=== PATIENT | female | born 1980 | race Caucasian/White ===

== ENCOUNTER 2017-07-19 23:13 | Observation (INO) | payer BC, OTHER ==
[2017-07-19] MEDS ORDERED: METOCLOPRAMIDE HCL ORAL SOLN 10 MG/10 ML UDCUP PO ONE (23:32)
[2017-07-19] MEDS ORDERED: MAG HYDROX/AL HYDROX/SIMETH SUSP 30 ML UDCUP PO ONE (23:32)
[2017-07-19] MEDS ORDERED: LIDOCAINE 2% VISCOUS SOLN 20 ML UDCUP PO ONE (23:32)
--- NOTE | 2017-07-19 23:34 | ER Document Report ---
ED Medical Screen (RME) - General Chief Complaint: Abdominal Pain Stated Complaint: ABDOMINAL PAIN Notes: Patient is a 36-year-old female presents emergency department complaining of epigastric pain radiating down into her lower belly midline that started earlier this afternoon he got worse around 5:00. She admits to episodes of emesis without any bright red blood, coffee-ground emesis. She denies any sharp pain radiating into her back up in her chest or in her right upper quadrant. Previous cholecystectomy and hysterectomy. Still has her appendix. Denies any fevers. States her last bowel movement was earlier this morning. Denies any other previous GI history. I have greeted and performed a rapid initial assessment of this patient. A comprehensive ED assessment and evaluation of the patient, analysis of test results and completion of the medical decision making process will be conducted by additional ED providers. TRAVEL OUTSIDE OF THE [place] IN LAST 30 DAYS: No - Related Data Allergies/Adverse Reactions: No Known Allergies Allergy (Unverified 01/31/15 11:53) Past Medical History - Past Medical History Cardiac Medical History: Reports: Hx Hypertension - gestational Denies: Hx Coronary Artery Disease, Hx Heart Attack Pulmonary Medical History: Denies: Hx Asthma, Hx Bronchitis, Hx COPD, Hx Pneumonia Neurological Medical History: Denies: Hx Cerebrovascular Accident, Hx Seizures Renal/ Medical History: Denies: Hx Peritoneal Dialysis GI Medical History: Denies: Hx Hepatitis, Hx Hiatal Hernia, Hx Ulcer Musculoskeltal Medical History: Denies Hx Arthritis Infectious Medical History: Denies: Hx Hepatitis Past Surgical History: Reports: Hx Section - x1, Hx Hysterectomy - , Hx Oral Surgery - wisdom teeth. Denies: Hx Mastectomy, Hx Open Heart Surgery, Hx Pacemaker - Immunizations Hx Diphtheria, Pertussis, Tetanus Vaccination: Yes Physical Exam - Vital signs Vitals: Temp Pulse Resp BP Pulse Ox 98.1 F 102 H 20 131/82 H 98 07/19/17 23:22 07/19/17 23:22 07/19/17 23:22 07/19/17 23:22 07/19/17 23:22 - Notes Notes: PHYSICAL EXAM GENERAL: Alert, interacts well. LUNGS: Clear to auscultation bilaterally, no wheezes, rales, or rhonchi. No respiratory distress. HEART: Regular rate and rhythm. No murmurs, gallops, or rubs. ABDOMEN: Soft, mildly distended, nontender. No guarding, rebound, or rigidity. NEUROLOGICAL: Alert and oriented x4. Normal speech. PSYCH: Normal affect, normal mood. Course - Vital Signs Vital signs: Temp Pulse Resp BP Pulse Ox 98.1 F 102 H 20 131/82 H 98 07/19/17 23:22 07/19/17 23:22 07/19/17 23:22 07/19/17 23:22 07/19/17 23:22
[2017-07-20 00:31] LABS: HEMATOCRIT 39.4 % (36.0-47.0); MEAN CORPUSCULAR HEMOGLOBIN 28.2 pg (27.0-33.4); MEAN CORPUSCULAR VOLUME 86 fl (80-97); PLATELET COUNT 326 10^3/uL (150-450); RED CELL DISTRIBUTION WIDTH 13.2 % (11.5-14.0); WHITE BLOOD COUNT 18.7 10^3/uL (4.0-10.5)
--- NOTE | 2017-07-20 00:36 | RADIOLOGY REPORT (SQ) ---
EXAM DESCRIPTION: ACUTE ABDOMEN SERIES CLINICAL HISTORY: 36 years, Female, epigastric pain COMPARISON: None. TECHNIQUE: Three images. LIMITATIONS: None. FINDINGS: No acute cardiopulmonary findings. Paucity of bowel gas without obstruction. Right upper abdominal clips. Intact bony structures. IMPRESSION: No acute findings.
[2017-07-20 00:53] LABS: ALANINE AMINOTRANSFERASE 26 U/L (9-52); ALBUMIN 5.4 g/dL (3.5-5.0); ALKALINE PHOSPHATASE 86 U/L (38-126); ANION GAP 15 (5-19); ASPARTATE AMINO TRANSFERASE 23 U/L (14-36); BILIRUBIN,DIRECT 0.1 mg/dL (0.0-0.4); BILIRUBIN,TOTAL 0.3 mg/dL (0.2-1.3); BLOOD UREA NITROGEN 11 mg/dL (7-20); CALCIUM 10.7 mg/dL (8.4-10.2); CARBON DIOXIDE 23 mmol/L (22-30); CHLORIDE 102 mmol/L (98-107); GLUCOSE 117 mg/dL (75-110); LIPASE 92.1 U/L (23-300); POTASSIUM 4.2 mmol/L (3.6-5.0); SODIUM 140.1 mmol/L (137-145); TOTAL PROTEIN 7.8 g/dL (6.3-8.2)
[2017-07-20] MEDS ORDERED: HYDROMORPHONE HCL INJ/PF 2 MG/ML AMPULE IV ONE ×2 (02:15→05:24)
[2017-07-20] MEDS ORDERED: ONDANSETRON HCL INJ/PF 4 MG/2 ML SDV IV ONE ×2 (02:15→04:29)
--- NOTE | 2017-07-20 02:56 | ER Document Report ---
ED General - General Chief Complaint: Abdominal Pain Stated Complaint: ABDOMINAL PAIN Time Seen by Provider: 07/20/17 00:24 Notes: Patient is a pleasant 36-year-old female presents with complaint of abdominal pain starting at 5 PM. She is also had some nausea and vomiting. No diarrhea. No fevers. She says she has never had pain like this before. She has previous history of cholecystectomy and hysterectomy. Pain initially was more upper abdomen but now is more periumbilical. No pain in the back. No dysuria. No abnormal vaginal discharge or bleeding. TRAVEL OUTSIDE OF THE [place] IN LAST 30 DAYS: No - Related Data Allergies/Adverse Reactions: No Known Allergies Allergy (Unverified 01/31/15 11:53) Past Medical History - Social History Smoking Status: Never Smoker Frequency of alcohol use: None Drug Abuse: None Family History: Reviewed & Not Pertinent Patient has suicidal ideation: No Patient has homicidal ideation: No - Past Medical History Cardiac Medical History: Reports: Hx Hypertension - gestational Denies: Hx Coronary Artery Disease, Hx Heart Attack Pulmonary Medical History: Denies: Hx Asthma, Hx Bronchitis, Hx COPD, Hx Pneumonia Neurological Medical History: Denies: Hx Cerebrovascular Accident, Hx Seizures Renal/ Medical History: Denies: Hx Peritoneal Dialysis GI Medical History: Denies: Hx Hepatitis, Hx Hiatal Hernia, Hx Ulcer Musculoskeltal Medical History: Denies Hx Arthritis Infectious Medical History: Denies: Hx Hepatitis Past Surgical History: Reports: Hx Section - x1, Hx Cholecystectomy, Hx Hysterectomy - 01/23/2015, Hx Oral Surgery - wisdom teeth, Hx Tonsillectomy. Denies: Hx Mastectomy, Hx Open Heart Surgery, Hx Pacemaker - Immunizations Hx Diphtheria, Pertussis, Tetanus Vaccination: Yes Review of Systems - Review of Systems Notes: My Normal Review Basic REVIEW OF SYSTEMS: CONSTITUTIONAL : Denies fever, chills, or sweats. Denies recent illness. EENT: Denies eye, ear, throat, or mouth pain or symptoms. Denies nasal or sinus congestion. CARDIOVASCULAR: Denies chest pain. RESPIRATORY: Denies cough, cold, or chest congestion. Denies shortness of breath, difficulty breathing, or wheezing. GASTROINTESTINAL: Pain in the periumbilical region of the abdomen. Vomiting. No diarrhea. GENITOURINARY: Denies difficulty urinating, painful urination, burning, frequency, or blood in urine. FEMALE GENITOURINARY: Denies vaginal bleeding, abnormal or irregular periods. LMP: MUSCULOSKELETAL: Denies neck or back pain or joint pain or swelling. SKIN: Denies rash or skin lesions. NEUROLOGICAL: Denies altered mental status or loss of consciousness. Denies headache. Denies weakness or paralysis or loss of use of either side. Denies problems with gait or speech. Denies sensory or motor loss. ALL OTHER SYSTEMS REVIEWED AND NEGATIVE. Physical Exam - Vital signs Vitals: Temp Pulse Resp BP Pulse Ox 98.1 F 102 H 20 131/82 H 98 07/19/17 23:22 07/19/17 23:22 07/19/17 23:22 07/19/17 23:22 07/19/17 23:22 - Notes Notes: General Appearance: Well nourished, alert, cooperative, no acute distress, moderate obvious discomfort. Vitals: reviewed, See vital signs table. Head: no swelling or tenderness to the head Eyes: PERRL, EOMI, Conjuctiva clear Mouth: No decreasd moisture Lungs: No wheezing, No rales, No rhonci, No accessory muscle use, good air exchange bilaterally. Heart: Normal rate, Regular rythm, No murmur, no rub Abdomen: Normal BS, soft, No rigidity, mild to moderate periumbilical abdominal tenderness palpation, No guarding, no rebound, no abdominal masses, Extremities: strength 5/5 in all extremities, good pulses in all extremities, no swelling or tenderness in the extremities, no edema. Skin: warm, dry, appropriate color, no rash Neuro: speech clear, oriented x 3, normal affect, responds appropriately to questions. Course - Re-evaluation Re-evalutation: 07/20/17 04:47 On reevaluation the patient's pain continues to be well-controlled. She is not asking for any further pain medicine. She continues to only have pain in the suprapubic region. No pain over right lower quadrant. CT scan does show appendicitis. I have ordered Zosyn. She is n.p.o. I have ordered maintenance IV fluids. I will contact the general surgeon to talk to them about admitting and definitive treatment for the patient's appendicitis. 07/20/17 05:30 I did speak with Dr. Morales who has now come down to see the patient. He is evaluating patient for definitive treatment of her appendicitis. Patient did start having little more pain and therefore I have just ordered repeat dosage of pain medicine. Dictation of this chart was performed using voice recognition software; therefore, there may be some unintended grammatical errors. 07/20/17 05:30 - Vital Signs Vital signs: Temp Pulse Resp BP Pulse Ox 98.8 F 56 L 16 129/77 H 97 07/20/17 23:21 07/20/17 23:21 07/20/17 23:21 07/20/17 23:21 07/20/17 23:21 - Laboratory Result Diagrams: 07/20/17 00:08 07/20/17 00:08 Laboratory results interpreted by me: 07/20/17 07/20/17 00:08 00:08 WBC 18.7 H Glucose 117 H Calcium 10.7 H Albumin 5.4 H Discharge - Discharge Clinical Impression: Appendicitis Qualifiers: Appendicitis type: acute appendicitis Acute appendicitis type: with localized peritonitis Qualified Code(s): K35.3 - Acute appendicitis with localized peritonitis Condition: Stable Disposition: ADMITTED INPATIENT Admitting Provider: Surgicalist Unit Admitted: Surgical Floor
[2017-07-20 03:55] LABS: APPEARANCE,URINE SLIGHTLY-CLOUDY; BILIRUBIN,URINE NEGATIVE (NEGATIVE); COLOR,URINE YELLOW; GLUCOSE, URINE NEGATIVE (NEGATIVE); KETONES,URINE NEGATIVE (NEGATIVE); LEUKOCYTE ESTERASE,URINE NEGATIVE (NEGATIVE); NITRITE,URINE NEGATIVE (NEGATIVE); PROTEIN,URINE NEGATIVE (NEGATIVE); URINE SPECIFIC GRAVITY 1.019; UROBILINOGEN,URINE NEGATIVE mg/dL (<2.0)
--- NOTE | 2017-07-20 04:44 | RADIOLOGY REPORT (SQ) ---
EXAM DESCRIPTION: CT ABD/PELVIS WITH IV ORAL CLINICAL HISTORY: 36 years Female, abdominal pain, leukocytosis COMPARISON: Ultrasound, same day. TECHNIQUE: 100 mL Isovue-370 IV and oral contrast. Coronal and sagittal reformat. This exam was performed according to our departmental dose-optimization program, which includes automated exposure control, adjustment of the mA and/or kV according to patient size and/or use of iterative reconstruction technique. FINDINGS: 1.0 cm diameter inflamed, nonopacified appendix with 0.4 cm mural thickness and mild fat inflammation surrounding the appendiceal tip consistent with acute appendicitis. No free fluid. Cholecystectomy clips. Surgically absent uterus. Inferior thorax, liver, pancreas, spleen, adrenals, renal system, pelvic organs, lymphatics, vasculature, and musculoskeleton appear otherwise unremarkable. IMPRESSION: Acute appendicitis. Critical results reporting: The results of the examination have been personally discussed with the referring health care provider, SUSAN COOL, immediately following interpretation of the examination on 07/20/2017 3:40 AM BRICK EXTRUDER OPERATOR.
[2017-07-20] MEDS ORDERED: NORMAL SALINE 1000 ML 1,000 ML IV ONE ×2 (04:45→06:04)
[2017-07-20] MEDS ORDERED: PIPERACILLIN/TAZOBACTAM 3.375 GM VIAL IV ONE (04:45)
[2017-07-20] MEDS ORDERED: ONDANSETRON HCL INJ/PF 4 MG/2 ML SDV IV PRN (05:54)
--- NOTE | 2017-07-20 05:54 | PDOC H&P ---
History of Present Illness Admission Date/PCP: 07/20/16 Patient complains of: Abdominal pain x 24 hrs History of Present Illness: ALEM SANCHEZ is a 36 year old female, healthy with a 24 hrs hx of abdominal pain; A CT scan A/P has been done and is positive for acute, nonperforated appendicitis. Past Medical History Cardiac Medical History: Reports: Hypertension - gestational Denies: Coronary Artery Disease, Myocardial Infarction Pulmonary Medical History: Denies: Asthma, Bronchitis, Chronic Obstructive Pulmonary Disease (COPD), Pneumonia Neurological Medical History: Denies: Seizures Neurological History Note: migraine GI Medical History: Denies: Hepatitis, Hiatal Hernia Musculoskeltal Medical History: Denies: Arthritis Hematology: Denies: Anemia, Sickle Cell Disease Past Surgical History Past Surgical History: Reports: Section - x1, Cholecystectomy, Hysterectomy - 01/23/2015, Tonsillectomy Denies: Amputation, Mastectomy, Pacemaker Social History Smoking Status: Never Smoker Family History Family History: Reviewed & Not Pertinent Parental Family History Reviewed: Yes Children Family History Reviewed: Yes Sibling(s) Family History Reviewed.: Yes Medication/Allergy Home Medications: Cyclobenzaprine HCl [Flexeril 10 mg Tablet] 10 mg PO Q8HP PRN 01/16/15 Docusate Sodium [Colace 100 mg Capsule] 100 mg PO DAILY PRN #30 capsule Ibuprofen [Motrin 800 mg Tablet] 800 mg PO Q8H PRN #30 tab 01/23/15 Ondansetron [Zofran Odt 4 mg Tablet] 1 - 2 tab PO Q4HP PRN #10 tab.rapdis Oxycodone HCl/Acetaminophen [Percocet 5-325 mg Tablet] 1 - 2 tab PO ASDIR PRN # 25 tablet 01/23/15 Celecoxib [Celebrex 200 mg Capsule] 1 cap PO BID 02/01/15 Allergies/Adverse Reactions: No Known Allergies Allergy (Unverified 01/31/15 11:53) Physical Exam Vital Signs: Temp Pulse Resp BP Pulse Ox 98.1 F 102 H 20 131/82 H 98 07/19/17 23:22 07/19/17 23:22 07/19/17 23:22 07/19/17 23:22 07/19/17 23:22 General appearance: PRESENT: no acute distress Head exam: PRESENT: atraumatic Neck exam: PRESENT: full ROM Respiratory exam: PRESENT: clear to auscultation zeus Cardiovascular exam: PRESENT: RRR GI/Abdominal exam: PRESENT: diminished bowel sounds, soft, tenderness - right lower quadrant Results Laboratory Results: 07/20/17 00:08 07/20/17 00:08 07/20/17 07/20/17 07/20/17 00:08 00:08 03:40 WBC 18.7 H RBC 4.60 Hgb 13.0 Hct 39.4 MCV 86 MCH 28.2 MCHC 33.0 RDW 13.2 Plt Count 326 Seg Neutrophils % Not Reportable Lymphocytes % Not Reportable Monocytes % Not Reportable Eosinophils % Not Reportable Basophils % Not Reportable Absolute Neutrophils Not Reportable Absolute Lymphocytes Not Reportable Absolute Monocytes Not Reportable Absolute Eosinophils Not Reportable Absolute Basophils Not Reportable Sodium 140.1 Potassium 4.2 Chloride 102 Carbon Dioxide 23 Anion Gap 15 BUN 11 Creatinine 0.69 Est GFR ( Amer) > 60 Est GFR (Non-Af Amer) > 60 Glucose 117 H Calcium 10.7 H Total Bilirubin 0.3 AST 23 ALT 26 Alkaline Phosphatase 86 Total Protein 7.8 Albumin 5.4 H Lipase 92.1 Urine Color YELLOW Urine Appearance SLIGHTLY-CLOUDY Urine pH 5.0 Ur Specific [place] 1.019 Urine Protein NEGATIVE Urine Glucose (UA) NEGATIVE Urine Ketones NEGATIVE Urine Blood NEGATIVE Urine Nitrite NEGATIVE Ur Leukocyte Esterase NEGATIVE Urine WBC (Auto) 3 Urine RBC (Auto) 1 Impressions: Acute Abdomen Series 07/19/17 23:33 IMPRESSION: No acute findings. Abdomen/Pelvis CT 07/20/17 00:00 IMPRESSION: Acute appendicitis. Critical results reporting: The results of the examination have been personally discussed with the referring health care provider, SUSAN COOL, immediately following interpretation of the examination on 07/20/2017 3:40 AM METALLURGICAL OR MATERIALS TECHNICIAN. Assessment & Plan - Diagnosis (1) Appendicitis Qualifiers: Appendicitis type: acute appendicitis Acute appendicitis type: with localized peritonitis Qualified Code(s): K35.3 - Acute appendicitis with localized peritonitis Is this a current diagnosis for this admission?: Yes - Plan Summary Plan Summary: A/ Acute appendicitis, non perforated Leukocytosis P/ Laparoscopic appendectomy, possible open IV hydration NPO IV Zosyn Procedure, risks, benefits, complications explained to the patient, she understands all the above and decides to proceed
[2017-07-20] MEDS ORDERED: PIPERACILLIN/TAZOBACTAM 3.375 GM VIAL IV SCH (06:00)
[2017-07-20] MEDS ORDERED: HYDROMORPHONE HCL INJ/PF 2 MG/ML AMPULE IV PRN (06:00)
[2017-07-20] MEDS ORDERED: FAMOTIDINE INJ/PF 20 MG/2 ML SDV IV ONE ×2 (06:45→10:07)
[2017-07-20] MEDS ORDERED: BUPIVACAINE HCL 0.5%-EPI 1:200000 INJ/PF 30 ML VIAL ONE (07:38)
[2017-07-20] MEDS ORDERED: BUPIVACAINE HCL 0.5 % INJ/PF 30 ML SDV ONE (07:39)
[2017-07-20] MEDS ORDERED: HYDROMORPHONE HCL INJ/PF 2 MG/ML AMPULE ONE ×2 (07:39→09:32)
[2017-07-20] MEDS ORDERED: MIDAZOLAM 2 MG/2 ML INJ ONE (07:40)
[2017-07-20] MEDS ORDERED: ONDANSETRON HCL INJ/PF 4 MG/2 ML SDV ONE (07:40)
[2017-07-20] MEDS ORDERED: ACETAMINOPHEN 100 ML IV ONE (07:40)
[2017-07-20] MEDS ORDERED: FENTANYL CITRATE INJ/PF 100 MCG/2 ML AMPUL ONE (07:40)
[2017-07-20] MEDS ORDERED: DEXAMETHASONE SOD PHOSPHATE INJ 4 MG/1 ML VIAL ONE ×2 (07:40→11:16)
[2017-07-20] MEDS ORDERED: PROPOFOL INJ 200 MG/20 ML VIAL IV ONE (07:40)
[2017-07-20] MEDS ORDERED: MEPERIDINE HCL/PF INJ 25 MG/1 ML DISP.SYRIN IV PRN (08:40)
[2017-07-20] MEDS ORDERED: PROMETHAZINE HCL INJ 25 MG/1 ML VIAL IV PRN ×2 (08:40)
[2017-07-20] MEDS ORDERED: FENTANYL CITRATE INJ/PF 100 MCG/2 ML AMPUL IV PRN ×3 (08:40)
[2017-07-20] MEDS ORDERED: MORPHINE SULFATE 10 MG/ML INJ IV PRN (08:40)
[2017-07-20] MEDS ORDERED: OXYCODONE-ACETAMINOPHEN 5-325 MG TABLET PO PRN ×2 (08:40)
[2017-07-20] MEDS ORDERED: DIPHENHYDRAMINE HCL 50 MG/ML VIAL IV PRN (08:40)
--- NOTE | 2017-07-20 09:59 | OPERATIVE REPORT E ---
Operative Report NAME: ALEM SANCHEZ : 1980 AGE: 36Y DATE OF SURGERY: 07/20/2017 ROOM: ED12 PREOPERATIVE DIAGNOSIS: ACUTE APPENDICITIS. POSTOPERATIVE DIAGNOSIS: ACUTE APPENDICITIS. OPERATION: Laparoscopic appendectomy. SURGEON: DAVE VIGIL M.D. MILLROOM SUPERVISOR: [employer] Pressing Machine Operator of record. ANESTHESIA: General plus 30 mL of 1% lidocaine with epinephrine. COMPLICATIONS: None. FLUIDS: 1300. URINE OUTPUT: Monitored. DRAINS: None. BLOOD LOSS: 5 mL. INDICATION AND FINDINGS: This is a healthy 36-year-old female who presented to the Emergency Room with a 24-hour history of right lower quadrant pain, intense nausea. Found to have leukocytosis and acute appendicitis on CAT scan. Decision was made to take the patient to surgery urgently to undergo laparoscopic appendectomy, possible open. PROCEDURE: The procedure was done in the operating room. Patient was placed in supine position. General anesthesia induced by endotracheal intubation. Abdomen prepped and draped in usual fashion. Because of previous laparoscopic surgery including cholecystectomy and laparoscopic hysterectomy, a decision was made to insert the initial port in the left upper quadrant about 3 fingerbreadths below the rib cage along the midclavicular line. An incision was made at that level following injection of the skin with lidocaine. The skin was tethered with towel clips. A 5-mm port with Optiview adapter and 5-mm scope was inserted through the abdominal wall into the peritoneal cavity. A pneumoperitoneum was then established. A 5-mm port was inserted in the right upper quadrant under direct visualization following a skin incision with #15 blade. A moderate amount of adhesions were noted at the level of the umbilicus. A 5-mm port was inserted in left lower quadrant under direct visualization. With the use of a laparoscopic LigaSure, the greater omental adhesions at the level of umbilicus were taken down. At this point, the patient was placed in a steep Trendelenburg position with her right side elevated. The cecum was then grasped with laparoscopic graspers and followed distally along the anterior tenia, and the appendix was identified, found to be inflamed. It was elevated and stretched. Mesoappendix was divided with LigaSure. Appendix was stapled at the base with laparoscopic staple and extracted from the peritoneal cavity through the 12-mm port site using an Endo bag. The 12-mm port was reinserted, and the CO2 pneumoperitoneum was reestablished. The staple line of the appendix was inspected and found to be acceptable. In the meantime, the specimen was sent to pathology. The right lower quadrant was irrigated with about 500 mL of normal saline, which was fully aspirated until clear. Under direct visualization, a figure-of-8 Vicryl suture was placed to close the fascial defect at the level of the left upper quadrant. This was done without difficulty using a fascia closure device. When this was accomplished, all instruments were removed. The pneumoperitoneum was released. The ports were removed. The fascial defect over the left upper quadrant was closed by tying the [id number] 0 Vicryl suture previously placed. All incisions were injected with local anesthetic. The skin was closed with running subcuticular 4-0 Vicryl suture. Dermabond was then applied, and the patient tolerated procedure well, extubated and transferred to recovery room in satisfactory condition. DICTATING PHYSICIAN: DAVE VIGIL M.D. [id number] PHY#: [id number] ID: [id number] JOB#: [id number] ACCT: [id number] cc:DAVE VIGIL M.D. > MTDD
[2017-07-20] MEDS ORDERED: OXYCODONE-ACETAMINOPHEN 5-325 MG TABLET ONE (10:09)
[2017-07-20] MEDS ORDERED: GLYCOPYRROLATE INJ 0.4 MG/2 ML VIAL ONE (11:16)
[2017-07-20] MEDS ORDERED: NEOSTIGMINE METHYLSULFATE 10 MG/10 ML VIAL ONE (11:16)
[2017-07-20] MEDS ORDERED: ROCURONIUM BROMIDE INJ 50 MG/5 ML VIAL IV ONE (11:16)
[2017-07-20] MEDS ORDERED: SUCCINYLCHOLINE CHLORIDE INJ 200 MG/10 ML VIAL ONE (11:16)
[2017-07-20] MEDS ORDERED: NORMAL SALINE 1000 ML 1,000 ML IV PRN (12:01)
[2017-07-20] MEDS: PIPERACILLIN SODIUM/TAZOBACTAM 3.375 GM in NORMAL SALINE 100 ML IV SCH ×2 (12:32→17:32)
[2017-07-20] MEDS: ACETAMINOPHEN WITH CODEINE #3 TABLET PO PRN (12:44)
[2017-07-20] MEDS: HYDROMORPHONE HCL INJ/PF 2 MG/ML AMPULE IV PRN ×3 (15:04→22:33)
[2017-07-20] MEDS: FAMOTIDINE INJ/PF 20 MG/2 ML SDV IV SCH (22:18)
[2017-07-21] MEDS: ACETAMINOPHEN WITH CODEINE #3 TABLET PO PRN ×2 (00:04→09:42)
[2017-07-21] MEDS: PIPERACILLIN SODIUM/TAZOBACTAM 3.375 GM in NORMAL SALINE 100 ML IV SCH ×2 (00:04→05:23)
[2017-07-21] MEDS: HYDROMORPHONE HCL INJ/PF 2 MG/ML AMPULE IV PRN (04:47)
[2017-07-21] MEDS ORDERED: ENOXAPARIN SODIUM INJ 40 MG/0.4 ML DISP.SYRIN SUBCUT SCH (06:00)
[2017-07-21 07:36] LABS: ABSOLUTE EOSINOPHILS # (AUTO) 0.1 10^3/uL (0.0-0.6); ABSOLUTE MONOCYTES (AUTO) 0.5 10^3/uL (0.1-1.4); ABSOLUTE NEUT (AUTO) 5.7 10^3/uL (1.7-8.2); BASOPHILS % (AUTO) 0.3 % (0-2); EOSINOPHILS % (AUTO) 1.5 % (0-6); HEMATOCRIT 31.6 % (36.0-47.0); LYMPHOCYTES % (AUTO) 23.7 % (13-45); MEAN CORPUSCULAR HEMOGLOBIN 28.3 pg (27.0-33.4); MEAN CORPUSCULAR HGB CONC 32.9 g/dL (32.0-36.0); MEAN CORPUSCULAR VOLUME 86 fl (80-97); MONOCYTES % (AUTO) 6.5 % (3-13); PLATELET COUNT 256 10^3/uL (150-450); RED BLOOD COUNT 3.67 10^6/uL (3.72-5.28); RED CELL DISTRIBUTION WIDTH 13.4 % (11.5-14.0); TOTAL CELLS COUNTED % (AUTO) 100 %; WHITE BLOOD COUNT 8.4 10^3/uL (4.0-10.5)
[2017-07-21 07:39] LABS: HEMOGLOBIN 10.4 g/dL (12.0-15.5)
[2017-07-21 07:48] LABS: ANION GAP 11 (5-19); BLOOD UREA NITROGEN 10 mg/dL (7-20); CALCIUM 9.1 mg/dL (8.4-10.2); CARBON DIOXIDE 23 mmol/L (22-30); CHLORIDE 107 mmol/L (98-107); GLUCOSE 95 mg/dL (75-110); POTASSIUM 3.6 mmol/L (3.6-5.0); SODIUM 140.7 mmol/L (137-145)
[2017-07-21 08:44] VITALS: BP 123/76
[2017-07-21] MEDS: FAMOTIDINE INJ/PF 20 MG/2 ML SDV IV SCH (09:31)
--- NOTE | 2017-07-24 12:28 | DISCHARGE SUMMARY E ---
Discharge Summary NAME: ALEM SANCHEZ : 1980 AGE: 36Y ADMITTED: 07/20/2017 DISCHARGED: 07/21/2017 FINAL DIAGNOSIS: Acute appendicitis, status post laparoscopic appendectomy. REASON FOR ADMISSION: Abdominal pain. SUMMARY OF HOSPITALIZATION: Patient is a 36-year-old white female who presented to the emergency department complaining of acute onset of abdominal pain. She was evaluated by CT scan of the abdomen and pelvis and was found to have findings consistent with acute appendicitis. She was admitted to the surgical service, where she was taken to the operating room by Dr. Miles Morales on 07/20/2017, where she underwent laparoscopic appendectomy. Patient tolerated procedure well. Her final path report showed acute appendicitis with serositis. Postoperatively, she had no complications. Diet was advanced. She tolerated this well and was discharged home the following day. DISPOSITION: Patient is discharged home in the care of family. Follow up with the [facility] in 1 to 2 weeks. Take Tylenol or Motrin p.r.n. pain. DICTATING PHYSICIAN: STEPHANIE JURADO M.D. [id number] PHY#: [id number] ID: [id number] JOB#: [id number] ACCT: [id number] cc:Florin CRONIN MD, M.D. [facility],
== END 2017-07-21 11:00 | disposition home or self-care (01) ==
LOC: ER 23:13 → INTOOBSV 07-20 05:37 → EH 07-20 05:37 → 2S 07-20 10:25
PROVIDERS: ATTEND Surgery
PROC: 0DTJ4ZZ Resection of Appendix, Percutaneous Endoscopic Approach (ICD-10-PCS; principal; 2017-07-19)
DX: K35.3 Acute appendicitis with localized peritonitis (principal); Z90.49 Acquired absence of other specified parts of digestive tract; Z90.710 Acquired absence of both cervix and uterus
CPT/HCPCS: 96376; 99285; 96375; 96365; 36415 ×2; 83690; 85025 ×2; 80048; 80053; 81001; 88304 ×2; 74022; 74177; 44970; G0378 ×3; J2250; J3490 ×4; J1100; J3010; J1650; J1170 ×2; J0330; J2405; J7030; J2704; S0028 ×2; J2543 ×2; J0131; 840

== ENCOUNTER → 2019-10-04 | Outpatient (CLI) | payer BC ==
--- NOTE | 2019-10-04 09:32 | RADIOLOGY REPORT (SQ) ---
EXAM DESCRIPTION: U/S THYROID/SFT TISS HD NECK IMAGES COMPLETED DATE/TIME: 10/04/2019 7:28 am REASON FOR STUDY: FATIGUE, UNSPECIFIED TYPE (R53.83) R53.83 OTHER FATIGUE COMPARISON: None. TECHNIQUE: Dynamic and static kimbrough-scale images acquired of the thyroid gland. Selected additional c olor/power Doppler images recorded. All images stored to PACS. LIMITATIONS: None. FINDINGS: RIGHT LOBE: The right lobe of the thyroid gland measures 5.4 x 1.8 x 2.7 cm. The echotext ure of the lobe is heterogeneous. There are 2 discrete nodules in the right lobe of the thyroid glan d. 1. In the anterior aspect of the lower pole of the thyroid lobe there is an 1 x 0.9 x 1 cm solid iso echoic nodule with ill-defined margins that is a wider than tall and contains no echogenic foci (TR3) . 2. In the posterior aspect of the lower pole of the thyroid lobe there is an 1.2 x 1.3 x 1.4 cm herbie d isoechoic nodule with ill-defined margins that is wider than tall and contains no echogenic foci (T R3). LEFT LOBE: The left lobe of the thyroid gland measures 5.4 x 2.2 x 2 cm. The echotexture of the lob e is heterogeneous. There is a solid heterogeneous isoechoic nodule in the posterior aspect of the l ower pole of the thyroid lobe that measures 1.6 x 0.9 x 1.2 cm ; the nodule is wider than tall, has i ll-defined margins and contains no echogenic foci (TR3). ISTHMUS: The isthmus of the thyroid gland measures 7 mm in AP diameter. The echotexture of the isthm us is heterogeneous. There is a solid iso- to hyperechoic nodule in the isthmus of the thyroid that measures 1.5 x 1.5 x 1.5 cm ; the nodule is wider than tall, has ill-defined margins, and contains no echogenic foci (TR3). OTHER: No other finding. IMPRESSION: Heterogeneous multinodular thyroid gland with 4 discrete TR3 nodules that measure up to 1.5 cm. Based on ACR TI-RADS criteria a follow-up ultrasound in 12 months is recommended. TECHNICAL DOCUMENTATION: JOB ID: [id number] 2010 [employer]- All Rights Reserved Reading location - IP/workstation name: [email or web address]
== END ==
LOC: RAD 06:06
PROVIDERS: ATTEND Physician Assistant
DX: E04.2 Nontoxic multinodular goiter (principal); R53.83 Other fatigue
CPT/HCPCS: 76536